=== PATIENT | male | born 1990 | race Caucasian/White ===

== ENCOUNTER 2018-01-12 08:56 | Emergency (ER) | payer MEDICAID ==
[2018-01-12 09:08] VITALS: BP 125/76
--- NOTE | 2018-01-12 09:12 | EDPHY ---
H & P Stated Complaint: ST/BODY ACHES COUGH Time Seen by Provider: 01/12/18 09:12 HPI/ROS: HPI: This is a 27-year-old male who presents with Chief Complaint: ST/BODY ACHES/COUGH Location:body Quality: aches Duration: 1-2 days Signs and Symptoms: no fever, no nausea, no vomiting, no diarrhea, no urinary symptoms, no chest pain, no shortness of breath, no wheezing, + nonproductive cough, no sore throat, no neck stiffness, no joint pain, no swollen glands, no ear pain, no rash Timing: Severity: Context: Patient is originally from [place], transient living in the half[place]way for the last several weeks presents with 1-2 day history sore throat, body aches , nonproductive cough. He reports that everyone in the half-way is coughing and sick. He has Medicaid but is unable to use it as it is out of state. He took Jazm[place]-Burd[place] p.m. Last night with mild transient relief of his symptoms. Denies any wheezing, swollen glands, neck stiffness, fever, chills. Patient is a tobacco user. No history of lung disease. Modifying Factors: See above Comment: ROS: A comprehensive 10 system review of systems is otherwise negative aside from elements mentioned in the history of present illness. MEDICAL/SURGICAL/SOCIAL HISTORY: Medical history: Generally healthy. Does not take any regular medications. Surgical history: Denies Social history: Tobacco user. Family history noncontributory. CONSTITUTIONAL: Nontoxic-appearing adult white male, diaphoretic, pale, awake and alert, no obvious distress HEENT: Atraumatic and normocephalic, PERRL, EOMI. Nares patent; no rhinorrhea; no nasal mucosal edema. Tympanic membranes clear. Oropharynx clear, tonsils 1 + with mild erythema; no exudate; uvula midline; and moist pink mucosa. Airway patent. No lymphadenopathy. No meningismus. Cardiovascular: Normal S1/S2, regular rate, regular rhythm, without murmur rub or gallop. PULMONARY/CHEST: Symmetrical and nontender. Clear to auscultation bilaterally. Good air movement. No accessory muscle usage. ABDOMEN: Soft, nondistended, nontender, no rebound, no guarding, no peritoneal signs, no masses or organomegaly. No CVAT. EXTREMITIES: 2/2 pulses, strength 5/5, no deformities, no clubbing, no cyanosis or edema. NEUROLOGICAL: no focal neuro deficits. GCS 15. Speech clear. SKIN: Warm and dry, no erythema. no rash. Good capillary refill. Source: Patient Exam Limitations: No limitations - Personal History Current Tetanus Diphtheria and Acellular Pertussis (TDAP): Yes - Medical/Surgical History Hx Asthma: No Hx Chronic Respiratory Disease: No Hx Diabetes: No Hx Cardiac Disease: No Hx Renal Disease: No Hx Cirrhosis: No Hx Alcoholism: No Hx HIV/AIDS: No Hx Splenectomy or Spleen Trauma: No Other PMH: DENIES - Social History Smoking Status: Current every day smoker Constitutional: Initial Vital Signs Temperature (C) 37 C 01/12/18 09:05 Heart Rate 87 01/12/18 09:05 Respiratory Rate 17 01/12/18 09:05 Blood Pressure 125/76 H 01/12/18 09:05 O2 Sat (%) 95 01/12/18 09:05 O2 Delivery Mode Nasal Cannula Allergies/Adverse Reactions: No Known Allergies Allergy (Unverified 01/12/18 09:04) Home Medications: Medication Instructions Recorded Amoxicillin Trihydrate [Amoxil] 500 mg PO TID 7 Days cap 01/12/18 Medical Decision Making ED Course/Re-evaluation: Vital signs reviewed and stable upon arrival. No systemic signs. Rapid strep test ordered and negative Given Decadron 8 mg, ibuprofen 800 mg. Due to patient living in the half-way, tobacco user, will give prophylactic antibiotics. Amoxicillin 500 mg given in the ER and prescription for 7 day course. lung exam clear; no indication for albuterol inhaler No signs of meningitis, tonsillar abscess, dehydration, airway compromise. This patient was seen under the supervision of my secondary supervising physician. I evaluated care for this patient independently. Discussed this patient with Dr. Mccartney. Differential Diagnosis: Differential diagnosis includes but is not limited to influenza, upper respiratory infection, strep pharyngitis, viral tonsillitis, sinusitis. - Data Points Laboratory Results: 01/12/18 01/12/18 Unknown 09:10 Group A Strep Screen NEGATIVE (NEGATIVE) Group A Strep DNA Pending Medications Given: Discontinued Medications Dexamethasone (Decadron) 8 mg PO EDNOW ONE Stop: 01/12/18 09:16 Last Admin: 01/12/18 09:23 Dose: 8 mg Ibuprofen (Motrin) 800 mg PO EDNOW ONE Stop: 01/12/18 09:16 Last Admin: 01/12/18 09:22 Dose: 800 mg Departure - Departure Disposition: Home, Routine, Self-Care Clinical Impression: Pharyngotonsillitis, Tobacco user Upper respiratory infection Qualifiers: URI type: unspecified URI Qualified Code(s): J06.9 - Acute upper respiratory infection, unspecified Condition: Good Instructions: Upper Respiratory Infection (ED) Additional Instructions: Consume a minimum of 8-10 glasses of water or electrolyte fluid replacement drinks that include Gatorade, Powerade, Pedialyte. Eat a bland diet for the next 48 hours and then slowly advance as tolerated. Rest as much as possible until you are feeling better. Take antibiotics as directed. Do not skip a dose. Take Tylenol 650 mg every 4 hours and/or Ibuprofen 600 mg every 8 hours with food as needed for pain. Return to the ER immediately if you experience fevers/chills, shortness of breath, abdominal pain, inability to tolerate oral intake, or any other symptoms that concern you. Referrals: [facility],. [Clinic] - 5-7 days, if not improved Prescriptions: Amoxicillin Trihydrate [Amoxil] 500 mg PO TID 7 Days cap
[2018-01-12] MEDS ORDERED: IBUPROFEN 800 MG TAB PO ONE (09:15)
[2018-01-12] MEDS ORDERED: DEXAMETHASONE 4 MG TAB PO ONE (09:15)
--- NOTE | 2018-01-12 12:05 | ASMTCMCOM ---
CM Note CM Note Notes: Pt presented to the ED for sore throat, cough, body aches for the past 1-2 days. Pt is homeless and has been staying at the [facility]; pt states there are a lot of people staying there w/similar symptoms. Pt recently moved here from [place] a few weeks ago. Pt states he has Medicaid but it is still out of state. Pt provided antibiotics Rxn via [facility] due to pt not having and money. Pt states he works but does not receive his pay check until next week. Pt states he is familiar w/[facility] and plans on following up with them on Sunday. CM available for further assistance if needed. Date Signed: 01/12/2018 12:04 PM Electronically Signed By:Kathrin Mayes RN
== END 2018-01-12 10:05 | disposition home or self-care (01) ==
DX: J03.90 Acute tonsillitis, unspecified (principal); F17.210 Nicotine dependence, cigarettes, uncomplicated; Z59.0 Homelessness

== ENCOUNTER 2018-01-26 13:51 | Emergency (ER) | payer MEDICAID ==
--- NOTE | 2018-01-26 13:58 | EDPHY ---
H & P Time Seen by Provider: 01/26/18 13:52 HPI/ROS: CHIEF COMPLAINT: Rash to groin HISTORY OF PRESENT ILLNESS: 27-year-old immunocompetent male arrives via ambulance complaining of itching, tender rash to his groin and bilateral medial thigh for the past 4 days. No scrotal involvement. No fever or chills. No nausea or vomiting. No vesicles. PRIMARY CARE PROVIDER: REVIEW OF SYSTEMS: 10 systems reviewed and are negative with exception of illness mentioned in the history of present illness PHYSICAL EXAM (Prior to examination, patient consented to physical exam, hands were washed and my usual and customary physical exam procedures followed) 1) GENERAL: Well-developed, well-nourished, alert and oriented. Appears to be in no acute distress. 2) HEAD: Normocephalic 3) HEENT: sclera anicteric 4) LUNGS: Breathing comfortably. 5) SKIN: The patient's inguinal region and bilateral medial thigh he has erythema, excoriation with no signs of super infection. 6) MUSCULOSKELETAL: Soft compartments 7) : Normal male external genitalia, scrotum nontender non erythematous with no evidence of Willi's gangrene. Abdomen nontender.: DIFFERENTIAL DIAGNOSIS: In no particular order include but limited to contact dermatitis, tinea cruris, cellulitis, Willi's gangrene Smoking Status: Current every day smoker Constitutional: Initial Vital Signs Temperature (C) 37 C 01/26/18 13:58 Heart Rate 91 01/26/18 13:58 Respiratory Rate 16 01/26/18 13:58 Blood Pressure 113/76 01/26/18 13:58 O2 Sat (%) 96 01/26/18 13:58 O2 Delivery Mode Room Air Allergies/Adverse Reactions: No Known Allergies Allergy (Unverified 01/12/18 09:04) Home Medications: Medication Instructions Recorded Amoxicillin Trihydrate [Amoxil] 500 mg PO TID 7 Days cap 01/12/18 Nystatin/Triamcin 1 cristian TP BID #60 oint...g. 01/26/18 [Nystatin-Triamcinolone Ointm] MDM/Departure - MDM ED Course/Re-evaluation: In the patient's symptoms are more likely secondary to acute tinea cruris combined with irritation on his pants and rubbing with other leg. He has been given moisturizer in a prescription for nystatin with triamcinolone. We discussed hygiene. Recommend follow up with [facility]. My usual customary dermatologic precautions instructions provided. He has no evidence of Willi's gangrene or super infection. I saw this patient independently based on established practice protocols. Care of patient under supervision of secondary supervising physician Dr Lemus with whom I discussed case. - Depart Disposition: Home, Routine, Self-Care Clinical Impression: Tinea cruris Condition: Good Instructions: [place] Itch (ED) Prescriptions: Nystatin/Triamcin [Nystatin-Triamcinolone Ointm] 1 cristian TP BID #60 oint...g. Referrals: [facility],. [Clinic] - 2-3 days, call for appt.
[2018-01-26 14:09] VITALS: BP 115/78
[2018-01-26] MEDS ORDERED: IBUPROFEN 600 MG TAB PO ONE (14:31)
--- NOTE | 2018-01-26 14:55 | ASMTCMCOM ---
CM Note CM Note Notes: Requested to assist patient by providing a note for the [facility] explaining that pt would benefit from having a cot tonight and to rest for the remainder of the day. This CM called [facility] ([phone]) and spoke w/Krishna at the front attendant who stated he would ensure pt was provided a cot and allowed to rest. Pt provided a Work Limited Duty note and Work Excuse. Pt states he has his own bus pass and plans to go to [employer] where he is employed; pt states he believes his employer will help pay for his Rxn. Pt states [place] yet and that he might not even be eligible anymore due to his current income. Pt states he plans on following up with [facility] on Sunday. CM available for further assistance if needed. Date Signed: 01/26/2018 02:54 PM Electronically Signed By:Kathrin Mayes RN
== END 2018-01-26 14:35 | disposition home or self-care (01) ==
LOC: EDUNIT#
DX: B35.6 Tinea cruris (principal); F17.200 Nicotine dependence, unspecified, uncomplicated

== ENCOUNTER 2018-03-30 12:59 | Emergency (ER) | payer MEDICAID ==
[2018-03-30 13:16] VITALS: BP 133/76
[2018-03-30] MEDS ORDERED: ONDANSETRON 4MG PREPACK#2 BTL TAKEHOME ONE (13:32)
--- NOTE | 2018-03-30 13:40 | EDPHY ---
H & P Time Seen by Provider: 03/30/18 13:20 HPI/ROS: CHIEF COMPLAINT: Body aches, nausea, right ear pain HISTORY OF PRESENT ILLNESS: Patient states he began to get sick about 5-6 days ago. It started with body aches, headache, right ear pain. He also felt staffed up with congestion, some cough. Not sure about fever. He states he also has had nausea pretty consistently but only 3 episodes of vomiting in the last week. Denies any diarrhea. Has tried Tylenol cold and flu which did not help much. States he noticed some blood from his ear today prompting his ED visit. Patient denies placing anything in his ear. REVIEW OF SYSTEMS: Negative except per HPI. General Appearance: Alert, no distress. Eyes: Pupils equal and round no icterus HEENT: Left ear normal, right ear TM normal, external auditory canal with 2 areas of excoriation and evidence of recent bleeding. Oropharynx clear, no lymphadenopathy. Cardiac: Regular rate and rhythm no murmurs rubs or gallops. Respiratory: No respiratory distress. Lungs clear to auscultation bilaterally Abdomen: Soft, nontender, nondistended. Normal bowel sounds. Neurological: Awake, alert, no focal deficits. Skin: Warm and dry. Musculoskeletal: Neck is supple nontender. Extremities are symmetrical, full range of motion, no edema. Psychiatric: Patient is oriented X 3, there is no agitation. Medical/surgical history: Noncontributory Social history: Homeless, does smoke cigarettes and cannabis. Occasional alcohol. Smoking Status: Current every day smoker Constitutional: Initial Vital Signs Temperature (C) 36.8 C 03/30/18 13:14 Heart Rate 83 03/30/18 13:14 Respiratory Rate 16 03/30/18 13:14 Blood Pressure 133/76 H 03/30/18 13:14 O2 Sat (%) 97 03/30/18 13:14 O2 Delivery Mode Room Air Allergies/Adverse Reactions: No Known Allergies Allergy (Unverified 01/12/18 09:04) Home Medications: Medication Instructions Recorded NK [No Known Home Meds] 03/30/18 Medical Decision Making Differential Diagnosis: Differential diagnosis includes but is not limited to influenza, upper respiratory infection, otitis media, otitis externa. After evaluation patient well appearing with excoriations in the right external auditory canal not clearly infected but will treat with topical ear drops and giving Zofran for nausea. Patient referred back to [facility] for follow-up if not improving in the next 4-5 days. Departure - Departure Clinical Impression: Otitis externa Qualifiers: Otitis externa type: unspecified type Chronicity: acute Laterality: right Qualified Code(s): H60.501 - Unspecified acute noninfective otitis externa, right ear Condition: Good Instructions: Otitis Externa (ED) Additional Instructions: Use ear drops as written. The Zofran is for nausea. You should follow-up with [facility] in 3-4 days if your symptoms are not improving. Return to the emergency department for high fever, inability to keep down fluids or other worsening of her condition. Referrals: NONE *PRIMARY CARE P,. [Primary Care Provider] - As per Instructions
[2018-03-30] MEDS ORDERED: NEOMY SULF/POLYMYX B SULF/HC 10ML OTIC SOLUTION RTEAR SCH (13:45)
== END 2018-03-30 14:13 | disposition home or self-care (01) ==
DX: H60.501 Unspecified acute noninfective otitis externa, right ear (principal); R11.2 Nausea with vomiting, unspecified

== ENCOUNTER 2018-04-01 05:24 | Emergency (ER) | payer MEDICAID ==
[2018-04-01] MEDS ORDERED: PSEUDOEPHEDRINE HCL 30 MG TAB PO ONE (05:43)
[2018-04-01] MEDS ORDERED: ACETAMINOPHEN 500 MG TAB PO ONE (05:43)
[2018-04-01] MEDS ORDERED: IBUPROFEN 200 MG TAB PO ONE (05:43)
--- NOTE | 2018-04-01 05:43 | EDPHY ---
H & P Stated Complaint: Sore throat, headache, cold Time Seen by Provider: 04/01/18 05:31 HPI/ROS: HPI The patient presents with sore throat, rhinorrhea, cough, malaise, ear pain which has been present for the last 10 days. He is brought in by ambulance. He has been taking ibuprofen and Tylenol with some improvement in his symptoms. Last night, he took a dose of Sudafed with significant improvement in his symptoms. This morning, his friend who and given him the Sudafed was not around and his symptoms are persistent so he called 911. As he was seen in the ER a few days ago and was given antibiotic ear drops which he continues to use. He has not had any fever that he is aware of.. REVIEW OF SYSTEMS 10 systems were reviewed and negative with the exception of the elements mentioned in the history of present illness. PMHx: Mild asthma, no PMD though has been referred to [facility] Hx: Smokes cigarettes, marginally housed PHYSICAL General Appearance: Alert, no distress Eyes: Pupils equal and round no pallor or injection ENT, Mouth: Mucous membranes moist, posterior pharynx is erythematous without exudate, bilateral TMs are bulging and slightly erythematous Respiratory: There are no retractions, lungs are clear to auscultation Cardiovascular: Regular rate and rhythm Gastrointestinal: Abdomen is soft and non-tender, no masses, bowel sounds normal Neurological: A&O, moves all extremities Skin: Warm and dry, no rashes Musculoskeletal: Neck is supple non tender Extremities: symmetrical, full range of motion Psychiatric: Patient is oriented X 3, there is no agitation Source: Patient, EMS, Old records Exam Limitations: No limitations - Personal History Current Tetanus Diphtheria and Acellular Pertussis (TDAP): Yes Tetanus Vaccine Date: 2017 - Medical/Surgical History Hx Asthma: No Hx Chronic Respiratory Disease: No Hx Diabetes: No Hx Cardiac Disease: No Hx Renal Disease: No Hx Cirrhosis: No Hx Alcoholism: No Hx HIV/AIDS: No Hx Splenectomy or Spleen Trauma: No Other PMH: DENIES - Social History Smoking Status: Current every day smoker Constitutional: Initial Vital Signs Temperature (C) 36.6 C 04/01/18 05:26 Heart Rate 83 04/01/18 05:26 Respiratory Rate 17 04/01/18 05:26 Blood Pressure 101/77 04/01/18 05:26 O2 Sat (%) 95 01/14/19 05:26 O2 Delivery Mode Room Air Allergies/Adverse Reactions: No Known Allergies Allergy (Unverified 04/01/18 05:28) Home Medications: Medication Instructions Recorded NK [No Known Home Meds] 03/30/18 Medical Decision Making Differential Diagnosis: This is a 27-year-old male who has mild asthma who presents with cough, rhinorrhea, sore throat, bilateral ear pain for the last 4-5 days. Seen here recently and noted to have some abrasions of his ear canal and started on antibiotic ear drops. Symptoms have persisted. Took a friend's Sudafed with some improvement in his symptoms. His however did not have access to additional Sudafed. He called 911. Here he is very stable with normal vital signs. He does have posterior pharyngeal erythema without exudate. He does have lymphadenopathy. His lungs are clear. I suspect viral URI, very possibly influenza, however given multiple days of symptoms without any significant comorbidities, would not treat with Tamiflu anyway. Here, he was treated with ibuprofen, Tylenol, Sudafed. He was discharged with instructions for supportive care. - Data Points Medications Given: Discontinued Medications Acetaminophen (Tylenol) 1,000 mg PO EDNOW ONE Stop: 04/01/18 05:44 Last Admin: 04/01/18 05:57 Dose: 1,000 mg Ibuprofen (Motrin) 400 mg PO EDNOW ONE Stop: 04/01/18 05:44 Last Admin: 04/01/18 05:57 Dose: 400 mg Pseudoephedrine HCl (Sudafed) 30 mg PO EDNOW ONE Stop: 04/01/18 05:44 Last Admin: 04/01/18 05:57 Dose: 30 mg Departure - Departure Disposition: Home, Routine, Self-Care Clinical Impression: Upper respiratory infection Condition: Good Instructions: Upper Respiratory Infection (ED) Additional Instructions: I recommend you take ibuprofen 400 mg with acetaminophen 650 mg every 6 hr as needed for pain. You should also take Sudafed as needed for congestion. Please follow-up at [facility]. Referrals: [facility],. [Clinic] - As per Instructions
[2018-04-01 06:03] VITALS: BP 123/80
--- NOTE | 2018-04-05 17:07 | ASMTCMCOM ---
CM Note CM Note Notes: Followed up and spoke w/ Rochelle at [facility]. Pt was seen by their Homeless Outreach RN and VIDEO INTERN, Ashlyn, at the [facility] on 04/01 and 04/04/18. PC will continue to reach out to pt and hopefully get him established at . CM available for further assistance if needed. Date Signed: 04/05/2018 05:06 PM Electronically Signed By:Kathrin Mayes RN
== END 2018-04-01 06:02 | disposition home or self-care (01) ==
LOC: EDUNIT#
DX: J06.9 Acute upper respiratory infection, unspecified (principal); F17.200 Nicotine dependence, unspecified, uncomplicated

== ENCOUNTER 2018-04-21 13:51 | Emergency (ER) | payer MEDICAID ==
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
[2018-04-21 14:08] VITALS: BP 137/108
[2018-04-21] MEDS ORDERED: IBUPROFEN 600 MG TAB PO ONE (14:32)
== END 2018-04-21 14:50 | disposition home or self-care (01) ==
LOC: EDUNIT#
PROC: 2W3DX1Z Immobilization of Left Lower Arm using Splint (ICD-10-PCS; principal; 2018-04-21)
DX: S63.92XA Sprain of unspecified part of left wrist and hand, initial encounter (principal); Y04.8XXA Assault by other bodily force, initial encounter; Y92.9 Unspecified place or not applicable; Y99.9 Unspecified external cause status; Y93.9 Activity, unspecified
CPT/HCPCS: L3925

== ENCOUNTER 2018-05-19 06:46 | Emergency (ER) | payer MEDICAID | END 2018-05-19 07:37 | disposition home or self-care (01) ==

== ENCOUNTER 2018-06-07 16:27 | Emergency (ER) | payer MEDICAID ==
--- NOTE | 2018-06-07 16:34 | EDPHY ---
HPI/HX/ROS/PE/MDM Narrative: CHIEF COMPLAINT: Left-sided rib injury HPI: The patient is a 27-year-old male with a history of PTSD, paroxysmal SVT who was brought in by ambulance after a fall while skateboarding just prior to arrival. The patient apparently landed primarily on his left chest and left head. He did not lose consciousness. He complains only of pain in his left rib cage, exacerbated by breathing, palpation or coughing. He denies any head in ache, neck ache or abdominal pain. Of note this is his approximate 6th ED visit within the last 3 months. REVIEW OF SYSTEMS: Aside from elements discussed in the HPI, a comprehensive 10-point review of systems was reviewed and is negative. PMH: Includes PTSD, SVT SOCIAL HISTORY: Admits to marijuana use approximately 1 hr ago. Denies other drug abuse. Homeless. PHYSICAL EXAM: General:Patient is alert, in no acute distress. ENT:Eyes are normal to inspection. ENT inspection normal. Neck: Normal inspection. Full range of motion. Respiratory:No respiratory distress. Breath sounds normal bilaterally. Tenderness to palpation is present throughout the left chest wall including anterior and mid axillary line. No crepitus is palpable. No external signs of trauma are seen. Cardiovascular: Regular rate and rhythm. Strong peripheral pulses. Normal cap refill. Abdomen:The abdomen is nontender to palpation. There are no peritoneal signs. There are normal bowel sounds. Deep palpation to the left upper quadrant reveals no tenderness. No distention. Back: Normal to inspection. No tenderness to palpation. Skin: Normal color. No rash. Warm and dry. Extremities: Normal appearance. Full range of motion. Neuro: Oriented x3. Normal motor function. Normal sensory function. ED Course: Chest x-ray was read by myself as negative for acute fracture or pneumothorax. On re-evaluation at 5:15 p.m., the patient is comfortable and lying in bed. His vital signs are normal. Repeat deep palpation throughout his abdomen reveals no tenderness to palpation whatsoever including the LUQ. Given these findings in combination with a negative chest x-ray, I strongly doubt that the patient has a splenic or other solid organ injury. I think the patient is safe for discharge home. - Data Points Imaging Results: Imaging Impressions Ribs w/Chest X-Ray 06/07/18 16:30 Impression: 1. Negative left ribs and chest. General Time Seen by Provider: 06/07/18 16:27 Initial Vital Signs: Initial Vital Signs Temperature (C) 37.0 C 06/07/18 16:35 Heart Rate 100 06/07/18 16:35 Respiratory Rate 18 06/07/18 16:35 Blood Pressure 119/74 06/07/18 16:35 O2 Sat (%) 94 06/07/18 16:35 O2 Delivery Mode Room Air Allergies/Adverse Reactions: No Known Allergies Allergy (Verified 06/07/18 16:37) Home Medications: Medication Instructions Recorded NK [No Known Home Meds] 03/30/18 Departure - Departure Disposition: Home, Routine, Self-Care Clinical Impression: Contusion of rib on left side Condition: Good Instructions: Rib Contusion (ED) Additional Instructions: Follow-up with your primary doctor within 72 hours. Return to the Emergency Department for fever, chest pain, shortness of breath, increasing pain or other worsening of condition. Referrals: NONE *PRIMARY CARE P,. [Primary Care Provider] - As per Instructions
[2018-06-07] MEDS: IBUPROFEN 600 MG TAB PO ONE ×2 (17:27→17:31)
[2018-06-07 17:32] VITALS: BP 126/84
== END 2018-06-07 17:32 | disposition home or self-care (01) ==
LOC: EDUNIT#
DX: S20.212A Contusion of left front wall of thorax, initial encounter (principal); V00.131A Fall from skateboard, initial encounter; Y93.51 Activity, roller skating (inline) and skateboarding; Y92.480 Sidewalk as the place of occurrence of the external cause

== ENCOUNTER 2018-07-29 13:34 | Emergency (ER) | payer MEDICAID ==
[2018-07-29 13:51] VITALS: BP 108/61
--- NOTE | 2018-07-29 14:35 | EDPHY ---
H & P Time Seen by Provider: 07/29/18 14:08 HPI/ROS: CHIEF COMPLAINT: Left foot infection HISTORY OF PRESENT ILLNESS: The patient is a 27-year-old male who presents emergency department with a left foot infection. The patient states he developed a blister on his left foot about 3 weeks ago. It initially was healing but now has become significantly more red, swollen and painful. Denies any fevers or chills. Patient states he has been unable to keep his feet completely dry because he is homeless. This has amplified his discomfort. REVIEW OF SYSTEMS: 10 systems were reveiwed and are negative with the exception of the elements mentioned in the history of present illness. Past Medical/Surgical History: Includes SVT, asthma, PTSD, attention deficit hyperactivity disorder, depression The social history: homeless Smoking Status: Current every day smoker Physical Exam: Vitals noted General Appearance: Alert and no distress. Head: Pupils equal. Normal. Respiratory: No respiratory distress. Cardiac: regular rate and rhythm. Extremities: Left foot - the patient has a small quarter-sized area of erythema on the dorsal aspect of his 1st metatarsal. There is a small ulceration centrally. No streaking up the foot or leg. No fluctuance Skin: No rashes or lesions. Neuro: Alert. Normal mood and affect. Constitutional: Initial Vital Signs Temperature (C) 37.2 C 07/29/18 13:49 Heart Rate 88 07/29/18 13:49 Respiratory Rate 16 07/29/18 13:49 Blood Pressure 108/61 07/29/18 13:49 O2 Sat (%) 94 07/29/18 13:49 O2 Delivery Mode Room Air Allergies/Adverse Reactions: No Known Allergies Allergy (Verified 07/29/18 13:49) Home Medications: Medication Instructions Recorded Cephalexin [Keflex (*)] 500 mg PO QID 7 Days cap 07/29/18 Medical Decision Making ED Course/Re-evaluation: In the emergency department I discussed possible etiologies with the patient. Answered all his questions. He is given wound care instructions. He was given packets of bacitracin. He will treat with a course of Keflex. He is given warnings prior to leaving. Differential Diagnosis: My differential includes but is not limited to cellulitis, abscess, ulceration, diabetes Departure - Departure Disposition: Home, Routine, Self-Care Clinical Impression: Wound of foot, Cellulitis of foot Condition: Fair Instructions: Cellulitis (ED), Wound Infection (ED), Acute Wounds (ED) Additional Instructions: Take her entire course of antibiotics. Change your dressing twice daily. Referrals: Alisia Dhillon MD [Primary Care Provider] - 2-3 days without fail Prescriptions: Cephalexin [Keflex (*)] 500 mg PO QID 7 Days cap
== END 2018-07-29 14:50 | disposition home or self-care (01) ==
DX: L03.116 Cellulitis of left lower limb (principal); L97.521 Non-pressure chronic ulcer of other part of left foot limited to breakdown of skin; Z59.0 Homelessness

== ENCOUNTER 2018-09-11 18:37 | Emergency (ER) | payer MEDICAID | END 2018-09-11 19:53 | disposition home or self-care (01) ==